=== PATIENT | female | born 1950 | race Hispanic/Latino ===

== ENCOUNTER 2024-06-08 09:22 | Observation (INO) ==
--- NOTE | 2024-06-08 09:54 | Emergency Department Note ---
HPI - General Adult General Chief complaint: Weakness Stated complaint: BODY ACHES, NAUSEA Time Seen by Provider: 06/08/24 09:28 Source: patient and family Mode of arrival: walk-in Limitations: language barrier Limitations comment: Limited [place] History of Present Illness HPI narrative: This is a 74 year old female patient that presents to the ER with c/o cough, nausea, headache, runny nose and body aches for 2 days. Patient denies any chest pain, SOB, back pain, abdominal pain, fever, chills or N/V/D. patient denies any numbness, tingling, or weakness Onset (ago): day(s) (2) Relieving factors: Reports none Exacerbating factors: Reports none Associated symptoms: Reports cough and headaches Treatments prior to arrival: Reports none Related Data Home Medications Medication Instructions Recorded Confirmed famotidine 20 mg tablet 20 mg PO DAILY 10/11/23 02/12/24 gabapentin 400 mg capsule 400 mg PO DIRECTED 10/11/23 02/12/24 glipizide 10 mg tablet 10 mg PO BID 10/11/23 02/12/24 lisinopril 10 1 tab PO DAILY 10/11/23 02/12/24 mg-hydrochlorothiazide 12.5 mg tablet meloxicam 15 mg tablet 15 mg PO DAILY 10/11/23 02/12/24 pravastatin 40 mg tablet 40 mg PO DAILY 10/11/23 02/12/24 aspirin 81 mg tablet,delayed 81 mg PO DAILY 02/12/24 02/12/24 release Previous Rx's Medication Instructions Recorded cyclobenzaprine 10 mg tablet 10 mg PO TID PRN muscle spasm #15 02/12/24 tabs dexamethasone 1.5 mg (21 tabs) See Rx Instructions PO .COMPLEX 02/12/24 tablets in a dose pack Inflammation #21 ea ketorolac 10 mg tablet 10 mg PO Q6H PRN pain #20 tabs 02/12/24 Allergies Allergy/AdvReac Type Severity Reaction Status Date / Time No Known Drug Allergies Allergy Verified 06/08/24 09:43 Review of Systems Status of ROS 10 or more systems reviewed and unremark able except as noted in history and below Constitutional Denies: fever, chills, change in weight, fatigue, malaise or night sweats Eyes Denies: change in vision, blurry vision, blind spots, light sensitivity or eye discomfort Ears, nose, mouth, and throat Reports: nasal discharge and nasal congestion; Denies: throat pain, neck pain, throat swelling, difficulty swallowing, ho arseness or mouth pain Cardiovascular Denies: chest pain, palpitations, edema, swelling of feet/ankles or lightheadedness Respiratory Reports: cough; Denies: shortness of breath, wheezing, stridor, pain on inspiration, change in phlegm color or coughing up blood Gastrointestinal Denies: abdominal pain, nausea, vomiting, coffee grounds in vomit, heartburn, diarrhea or constipation Genitourinary Denies: painful urination, urinary frequency, urinary urgency, urinary incontinence or blood in urine Musculoskeletal Denies: back pain, neck pain, extremity pain, extremity swelling, joint pain or limited range of motion Integumentary/Breast Denies: rash, itching, redness, skin pain, skin tenderness, skin swelling, sores or new lesion Neurological Denies: headache, numbness in extremities, weakness in extremities, lack of coordination, dizziness or vertigo Psychiatric Denies: anxiety, mood swings, panic attacks, change in sleep pattern, hopelessness or loss of interest Endocrine Denies: excessive urination, excessive thirst, fatigue, cold intolerance, excessive sweating or flushing Hematologic/Lymphatic Denies: easy bruising, easy bleeding or enlarged lymph nodes Allergic/Immunologic Denies: hives, throat swelling, tongue swelling or facial swelling [facility] Medical History (Updated 04/29/24 @ 18:26 by Rula Mcgovern RN) Kidney disease Diabetes Hypertension Surgical History History of hysterectomy Social History (Updated 10/11/23 @ 13:29 by Cristela Eugene APRN) Smoking status: never smoker Within the past year, how often did you have a drink containing alcohol: never Score interpretation: A score less than 3 is consistent with normal alcohol consumption. Non-prescribed substance use: denies use What is your current living situation: I presently have a place to live Feel stressed/tense/nervous/anxious/difficulty sleeping: not at all Life stressors: other Life stressor details: 1 Due to disability, difficulty making decisions: No Exam Constitutional: normal general appearance and no apparent distress Vital Signs - 24 hr 06/08/24 09:38 Temperature 98.2 F Pulse Rate 79 Respiratory Rate 18 Blood Pressure 103/57 Pulse Oximetry 98 Oxygen Delivery Me thod Room Air HENMT: normocephalic, head/scalp atraumatic, hearing grossly normal bilaterally, external ears normal, nasal mucous membranes normal, external nose normal, oral mucous membranes normal and oropharynx normal Eyes: PERRL, EOMs intact bilaterally, conjunctivae normal and no scleral icterus Neck/C-Spine: visual inspection normal and trachea midline Lymph: no lymphadenopathy noted Chest: inspection of chest normal Respiratory: breath sounds equal bilaterally, normal respiratory effort, clear to auscultation bilaterally, no wheezes, no rales, no retractions, no use of accessory muscles and chest percussion normal Cardiovascular: normal heart rate noted, regular rhythm noted, no gallop, no rub, no murmur, no JVD, no clicks, peripheral pulses 2+ throughout and no additional abnormal heart sounds Gastrointestinal: abdomen normal to inspection, abdomen soft to palpation, nontender to palpation, nontender to percussion, nondistended, normoactive bowel sounds, no hepatosplenomegaly, no masses, no pulsatile mass, no ascites and no hernia Genitourinary: no CVA tenderness Back/Pelvis: spine normal to inspection Extremities: normal to inspection, normal to palpation, no tenderness, full ROM, no joint enlargement and no deformity 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, no movement abnormality noted, no focal motor deficit noted, no sensory deficits noted, gait normal, speech normal, coordination normal, no pronator drift noted, no fasciculations noted and GCS normal Psychiatry: mental status grossly normal, oriented x3, thought process normal, cooperative and affect normal Skin: skin color normal Course Reevaluation(s) Reevaluation #1: 1130: VSS, no s/s of acute distress noted, due to worsening of kidney function will admit patient to the medical floor for further evaluation and treatment Vital Signs Vital signs: Vital Signs Temperature 98.2 F 06/08/24 09:38 Pulse Rate 79 06/08/24 09:38 Respiratory Rate 18 06/08/24 09:38 Blood Pressure 103/57 06/08/24 09:38 Pulse Oximetry 98 06/08/24 09:38 Oxygen Delivery Method Room Air 06/08/24 09:38 Temperature 98.2 F 06/08/24 09:38 Pulse Rate 79 06/08/24 09:38 Respiratory Rate 18 06/08/24 09:38 Blood Pressure 103/57 06/08/24 09:38 Pulse Oximetry 98 06/08/24 09:38 Oxygen Delivery Method Room Air 06/08/24 09:38 Medical Decision Making Differential Diagnosis Differential Diagnosis: viral illness Medical Records Medical records reviewed: Yes I reviewed the patient's medical records Lab Data Lab results reviewed: Yes I reviewed the patient's lab results Labs: Lab Results 06/08/24 Range/Units 10:00 WBC 9.5 H (4.3-9.3) K/uL RBC 4.0 (4.00-5.50) M/uL Hgb 12.8 (12.5-15.8) gm/dL Hct 37.2 (35.9-46.7) % MCV 92.5 (81.0-93.7) fl MCH 31.8 (27.6-32.2) pg MCHC 34.4 (33.1-35.3) g/dl RDW 13.2 (11.4-14.2) % Plt Count 280 (152-353) K/uL MPV 9.1 (6.9-10.8) fl Gran % 70.9 (47.8-71.3) % Lymph % (Auto) 19.7 L (20.0-43.0) % [place] % (Auto) 6.7 (3.6-9.8) % Eos % (Auto) 2.2 (0.4-2.8) % Baso % (Auto) 0.5 (0.1-0.85) Lymph # (Auto) 1.9 (1.1-3.1) [place] # (Auto) 0.6 L (1.1-3.1) Eos # (Auto) 0.2 (0.0-0.2) Baso # (Auto) 0.1 (0.0-0.1) Absolute Gran (auto) 6.7 H (2.3-6.0) Sodium 133 L (136-145) mmol/L Potassium 4.1 (3.6-5.2) mmol/L Chloride 97.0 L (98-107) mmol/L Carbon Dioxide 23 (21-32) mmol/L Anion Gap 13.0 (4-14) mEq/L BUN 38 H (7-18) mg/dL Creatinine 2.7 H (0.6-1.3) mg/dL Estimated GFR 17.8 (>59.9) Glucose 115 H (70-110) mg/dL Calcium 9.1 (8.5-10.1) mg/dL Total Bilirubin 0.51 (0.0-1.0) mg/dL AST 21 (15-37) U/L ALT 15 L (30-65) U/L Alkaline Phosphatase 101 (50-136) U/L Total Protein 7.6 (6.4-8.2) g/dL Albumin 3.9 (3.4-5.0) g/dL Influenza Type A Ag Negative (Negative) Influenza Type B Ag Negative (Negative) Respiratory Virus Ag Negative (Negative) Streptococcus Screen Negative (Negative) Imaging Data CT scan - head: Attestation: I have reviewed the pertinent imaging results. Discharge Plan Discharge Patient Disposition: Admitted As Observation Condition: Stable Chief Complaint: Weakness Clinical Impression: Dehydration, Acute on chronic renal failure Time of Disposition: 11:57
[2024-06-08] MEDS: ONDANSETRON HCL/PF 4 MG/2 ML VIAL INJ STA (10:02)
[2024-06-08] MEDS: 0.9 % SODIUM CHLORIDE 1000 ML 1,000 ML IV STA ×2 (10:02→11:17)
[2024-06-08 10:08] LABS: Basophils #(Absolute) Auto 0.1 (0.0-0.1); Basophils%(Percent) Auto 0.5 (0.1-0.85); Eosinophils#(Absolute)Auto 0.2 (0.0-0.2); Eosinophils%(Percent) Auto 2.2 % (0.4-2.8); Granulocytes % - Auto 70.9 % (47.8-71.3); Granulocytes#(Absolute)- Auto 6.7 (2.3-6.0); Hematocrit 37.2 % (35.9-46.7); Mean Corpuscular Volume 92.5 fl (81.0-93.7); Monocytes #(Absolute)- Auto 0.6 (1.1-3.1); Monocytes %(Percent)- Auto 6.7 % (3.6-9.8); Platelet Count 280 K/uL (152-353); White Blood Count 9.5 K/uL (4.3-9.3)
[2024-06-08 10:15] LABS: Potassium 4.1 mmol/L (3.6-5.2)
[2024-06-08] MEDS ORDERED: ACETAMINOPHEN 500 MG TABLET ONE (11:15)
[2024-06-08] MEDS: ACETAMINOPHEN 500 MG TABLET PO ONE (11:17)
[2024-06-08 12:44] LABS: Urine Appearance CLEAR (CLEAR); Urine Color YELLOW (STRAW/YELL.)
[2024-06-08 12:45] LABS: Urine Blood NEGATIVE (NEG - TRACE); Urine Urobilinogen Normal (NORMAL)
[2024-06-08 13:51] LABS: Amphetamine Screen Urine NEG. (NEGATIVE); Cannabinoid Screen Urine NEG. (NEGATIVE); Cocaine Screen Urine NEG. (NEGATIVE); Methadone Screen Urine NEG. (NEGATIVE); Opiate Screen Urine NEG. (NEGATIVE)
[2024-06-08] MEDS ORDERED: bisacodyL 10 MG SUPP.RECT PR PRN (14:00)
[2024-06-08] MEDS: 0.9 % SODIUM CHLORIDE 1000 ML 1,000 ML IV SCH (14:37)
[2024-06-08] MEDS: ACETAMINOPHEN 500 MG TABLET PO PRN (16:26)
[2024-06-08] MEDS: MAGNESIUM, ALUMINUM HYDROXIDE 30 ML ORAL.SUSP PO PRN (21:08)
[2024-06-09 03:56] LABS: Basophils%(Percent) Auto 0.6 (0.1-0.85); Eosinophils#(Absolute)Auto 0.3 (0.0-0.2); Eosinophils%(Percent) Auto 3.8 % (0.4-2.8); Granulocytes % - Auto 67.2 % (47.8-71.3); Granulocytes#(Absolute)- Auto 5.1 (2.3-6.0); Hematocrit 34.3 % (35.9-46.7); Mean Corpuscular Volume 92.7 fl (81.0-93.7); Monocytes #(Absolute)- Auto 0.6 (1.1-3.1); Monocytes %(Percent)- Auto 8.1 % (3.6-9.8); Platelet Count 238 K/uL (152-353); White Blood Count 7.6 K/uL (4.3-9.3)
[2024-06-09 04:19] LABS: Potassium 3.8 mmol/L (3.6-5.2)
--- NOTE | 2024-06-09 10:27 | Internal Medicine H&P ---
Internal Medicine - H&P: HPI History of Present Illness Chief complaint: ACUTE ON CHRONIC RF, DEHYDRATION Narrative: Pt admitted from home via ER due to 2 days of worsening cough, malaise, chest congestion, and decreased intake. Found to have acute on chronic renal failure with otherwise benign labs and vitals. Did not rest well overnight due to mid- scapular back pain and cough. Denies fever, chills, N/V/D, rash, dyspnea, or hemoptysis. Review of Systems Status of ROS 10 or more systems reviewed and unremark able except as noted in history and below Constitutional Denies: fever, chills, change in weight, fatigue, malaise or night sweats Eyes Denies: change in vision, blurry vision, blind spots, light sensitivity or eye discomfort Ears, nose, mouth, and throat Reports: nasal discharge and nasal congestion; Denies: throat pain, neck pain, throat swelling, difficulty swallowing, hoarseness, mouth pain or vertigo Cardiovascular Denies: chest pain, palpitations, edema, swelling of feet/ankles, lightheadedness or shortness of breath with exertion Respiratory Reports: cough; Denies: shortness of breath, wheezing, stridor, pain on inspiration, change in phlegm color or coughing up blood Gastrointestinal Denies: abdominal pain, nausea, vomiting, coffee grounds in vomit, heartburn, diarrhea, constipation or difficulty swallowing Genitourinary Denies: painful urination, urinary frequency, urinary urgency, urinary incontinence or blood in urine Musculoskeletal Denies: back pain, neck pain, extremity pain, extremity swelling, joint pain or limited range of motion Integumentary/Breast Denies: rash, itching, redness, skin pain, skin tenderness, skin swelling, sores or new lesion Neurological Denies: headache, numbness in extremities, weakness in extremities, lack of coordination, dizziness or vertigo Psychiatric Denies: anxiety, mood swings, panic attacks, change in sleep pattern, hopelessness or loss of interest Endocrine Denies: excessive urination, excessive thirst, fatigue, cold intolerance, excessive sweating or flushing Hematologic/Lymphatic Denies: easy bruising, easy bleeding or enlarged lymph nodes Allergic/Immunologic Denies: hives, throat swelling, tongue swelling, facial swelling or wheezing [facility] Medical History (Updated 06/09/24 @ 11:53 by Rajiv Retana MD) Kidney disease Diabetes Hypertension Surgical History History of hysterectomy Social History (Updated 10/11/23 @ 13:29 by Cristela Eugene APRN) Smoking status: never smoker Within the past year, how often did you have a drink containing alcohol: never Score interpretation: A score less than 3 is consistent with normal alcohol consumption. Non-prescribed substance use: denies use What is your current living situation: I presently have a place to live Problems where you live: no known problems Highest level of school completed/degree received: decline to answer Feel stressed/tense/nervous/anxious/difficulty sleeping: not at all Life stressors: other Life stressor details: 1 Due to disability, difficulty making decisions: No Meds Home Medications and Allergies Home Medications Medication Instructions Recorded Confirmed Type glipizide 10 mg tablet 10 mg PO BID 10/11/23 06/09/24 History lisinopril 10 1 tab PO DAILY 10/11/23 06/09/24 History mg-hydrochlorothiazide 12.5 mg tablet aspirin 81 mg tablet,delayed 81 mg PO DAILY 02/12/24 06/09/24 History release insulin degludec 200 unit/mL (3 See Rx Instructions subcut .COMPLEX 06/09/24 06/09/24 History mL) subcutaneous pen (Tresiba FlexTouch U-200 insulin) Allergies Allergy/AdvReac Type Severity Reaction Status Date / Time No Known Drug Allergies Allergy Verified 06/08/24 09:43 Exam Constitutional: normal general appearance, no apparent distress, average body habitus, limitations noted (language barrier) and alert Vital Signs - 24 hr 06/08/24 10:30 06/08/24 11:00 06/08/24 11:31 Temperature Pulse Rate 78 77 78 Pulse Rate [Left R adial] Respiratory Rate 18 18 18 Blood Pressure 110/78 116/80 117/84 Blood Pressure [Ri ght Arm] Pulse Oximetry 98 98 98 Oxygen Delivery Me thod Room Air Room Air Room Air 06/08/24 12:00 06/08/24 12:20 06/08/24 12:27 Temperature 98.2 F Pulse Rate 69 69 Pulse Rate [Left R adial] 67 Respiratory Rate 18 19 18 Blood Pressure 120/80 120/80 Blood Pressure [Ri ght Arm] Pulse Oximetry 98 98 98 Oxygen Delivery Me thod Room Air Room Air 06/08/24 13:03 06/08/24 13:10 06/08/24 17:25 Temperature 98.3 F Pulse Rate 67 70 Pulse Rate [Left R adial] 69 Respiratory Rate 19 Blood Pressure 118/57 112/53 Blood Pressure [Ri ght Arm] 123/65 Pulse Oximetry 99 Oxygen Delivery Me thod Room Air 06/08/24 17:25 06/08/24 20:00 06/08/24 23:53 Temperature 97.5 F L 98.3 F Pulse Rate 74 Pulse Rate [Left R adial] 73 72 Respiratory Rate 19 16 Blood Pressure 122/49 Blood Pressure [Ri ght Arm] 149/96 117/60 Pulse Oximetry 99 97 Oxygen Delivery Ca thod Room Air Room Air 06/09/24 04:00 06/09/24 08:00 Temperature 97.7 F 99.9 F H Pulse Rate Pulse Rate [Left R adial] 81 72 Respiratory Rate 18 19 Blood Pressure Blood Pressure [Ri ght Arm] 113/46 120/55 Pulse Oximetry 99 99 [facility] HENMT: normocephalic, head/scalp atraumatic, hearing grossly normal bilaterally and external ears normal Eyes: PERRL, EOMs intact bilaterally and conjunctivae normal Neck/C-Spine: visual inspection normal and trachea midline Chest: palpation of chest normal Respiratory: breath sounds equal bilaterally, normal respiratory effort, wheezing noted (expiratory wheezes) and (scattered wheezes) and no rales Cardiovascular: normal heart rate noted, regular rhythm noted and no murmur Gastrointestinal: abdomen soft to palpation, nontender to palpation, nondistended and normoactive bowel sounds Back/Pelvis: no thoracic spine tenderness, no lumbar spine tenderness, thoracic spine ROM normal and lumbar spine ROM normal Extremities: normal to inspection, normal to palpation, no tenderness and full ROM Neurology: no focal motor deficit noted, speech normal and no fasciculations noted Psychiatry: mental status grossly normal, oriented x3, thought process normal, cooperative, affect normal and psychomotor activity normal Internal Medicine - H&P: Reslt Labs Labs: CBC WBC 7.6 K/uL (4.3-9.3) 06/09/24 03:40 RBC 3.7 M/uL (4.00-5.50) L 06/09/24 03:40 Hgb 11.7 gm/dL (12.5-15.8) L 06/09/24 03:40 Hct 34.3 % (35.9-46.7) L 06/09/24 03:40 MCV 92.7 fl (81.0-93.7) 06/09/24 03:40 MCH 31.5 pg (27.6-32.2) 06/09/24 03:40 MCHC 34.0 g/dl (33.1-35.3) 06/09/24 03:40 RDW 13.6 % (11.4-14.2) 06/09/24 03:40 Plt Count 238 K/uL (152-353) 06/09/24 03:40 MPV 9.3 fl (6.9-10.8) 06/09/24 03:40 Gran % 67.2 % (47.8-71.3) 06/09/24 03:40 Lymph % (Auto) 20.3 % (20.0-43.0) 06/09/24 03:40 [place] % (Auto) 8.1 % (3.6-9.8) 06/09/24 03:40 Eos % (Auto) 3.8 % (0.4-2.8) H 06/09/24 03:40 Baso % (Auto) 0.6 (0.1-0.85) 06/09/24 03:40 Lymph # (Auto) 1.5 (1.1-3.1) 06/09/24 03:40 [place] # (Auto) 0.6 (1.1-3.1) L 06/09/24 03:40 Eos # (Auto) 0.3 (0.0-0.2) H 06/09/24 03:40 Baso # (Auto) 0.0 (0.0-0.1) 06/09/24 03:40 Absolute Gran (auto) 5.1 (2.3-6.0) 06/09/24 03:40 BMP Sodium 137 mmol/L (136-145) 06/09/24 03:40 Potassium 3.8 mmol/L (3.6-5.2) 06/09/24 03:40 Chloride 106.0 mmol/L (98-107) 06/09/24 03:40 Carbon Dioxide 23 mmol/L (21-32) 06/09/24 03:40 Anion Gap 8.0 mEq/L (4-14) 06/09/24 03:40 BUN 26 mg/dL (7-18) H 06/09/24 03:40 Creatinine 1.8 mg/dL (0.6-1.3) H 06/09/24 03:40 Estimated GFR 29.0 (>59.9) 06/09/24 03:40 Glucose 61 mg/dL (70-110) L 06/09/24 03:40 Calcium 8.1 mg/dL (8.5-10.1) L 06/09/24 03:40 Phosphorus 3.5 mg/dL (2.5-4.9) 06/09/24 03:40 Magnesium 2.1 mg/dL (1.8-2.4) 06/09/24 03:40 Total Bilirubin 0.30 mg/dL (0.0-1.0) 06/09/24 03:40 AST 15 U/L (15-37) 06/09/24 03:40 ALT 10 U/L (30-65) L 06/09/24 03:40 Alkaline Phosphatase 91 U/L (50-136) 06/09/24 03:40 Total Protein 6.3 g/dL (6.4-8.2) L 06/09/24 03:40 Albumin 3.1 g/dL (3.4-5.0) L 06/09/24 03:40 Liver Function Total Bilirubin 0.30 mg/dL (0.0-1.0) 06/09/24 03:40 AST 15 U/L (15-37) 06/09/24 03:40 ALT 10 U/L (30-65) L 06/09/24 03:40 Alkaline Phosphatase 91 U/L (50-136) 06/09/24 03:40 Total Protein 6.3 g/dL (6.4-8.2) L 06/09/24 03:40 Albumin 3.1 g/dL (3.4-5.0) L 06/09/24 03:40 Urine Urine Color Yellow (STRAW/YELL.) 06/08/24 11:15 Urine Appearance Clear (CLEAR) 06/08/24 11:15 Ur Specific [place] 1.010 (1.001-1.035) 06/08/24 11:15 Urine Protein Negative (NEGATIVE) 06/08/24 11:15 Urine Glucose (UA) 4+ (NORMAL) 06/08/24 11:15 Urine Ketones Negative (NEGATIVE) 06/08/24 11:15 Urine Occult Blood Negative (NEG - TRACE) 06/08/24 11:15 Urine Nitrite Negative (NEGATIVE) 06/08/24 11:15 Urine Bilirubin Negative (NEGATIVE) 06/08/24 11:15 Urine Urobilinogen Normal (NORMAL) 06/08/24 11:15 Ur Leukocyte Esterase Negative (NEGATIVE) 06/08/24 11:15 Assessment and Plan Assessment and Plan (1) Acute bronchitis: Assessment and Plan: Likely viral. Steroids, nebs, inhalers, rest, regular diet Qualifiers: Bronchitis organism: unspecified organism Qualified Code(s): J20.9 - Acute bronchitis, unspecified Code(s): J20.9 - Acute bronchitis, unspecified (2) Acute on chronic kidney failure: Assessment and Plan: gentle hydration, at baseline today. Qualifiers: Acute renal failure type: with acute tubular necrosis Chronic kidney disease stage: stage 4 (GFR 15-29) Qualified Code(s): N17.0 - Acute kidney failure with tubular necrosis; N18.4 - Chronic kidney disease, stage 4 (severe) Code(s): N17.9 - Acute kidney failure, unspecified; N18.9 - Chronic kidney disease, unspecified Plan likely home tomorrow.
[2024-06-09] MEDS: BENZONATATE 100 MG CAPSULE PO PRN (11:20)
[2024-06-09] MEDS: METHYLPREDNISOLONE SOD SUCC/PF 125 MG/2 ML VIAL IVP ONE (11:20)
[2024-06-09] MEDS: IPRATROPIUM INH SCH (12:46)
[2024-06-09] MEDS: ALBUTEROL SULFATE INH SCH (12:46)
[2024-06-09] MEDS: GUAIFENESIN/DEXTROMETHORPHAN 20/200MG/10 ML SOLUTION PO SCH (12:46)
[2024-06-09] MEDS: SPACER INH SCH (12:46)
[2024-06-10] MEDS: TRAMADOL HCL 50 MG TABLET PO ONE (05:46)
--- NOTE | 2024-06-10 07:48 | Discharge Summary ---
DS: Providers Provider Date of admission: 06/08/24 11:43 Primary care physician: Yulisa Villa DS: Diagnosis Discharge Diagnosis (1) Acute bronchitis: Qualifiers: Bronchitis organism: unspecified organism Qualified Code(s): J20.9 - Acute bronchitis, unspecified (2) Acute on chronic kidney failure: Qualifiers: Acute renal failure type: with acute tubular necrosis Chronic kidney d isease stage: stage 4 (GFR 15-29) Qualified Code(s): N17.0 - Acute kidney failure with tubular necrosis; N18.4 - Chronic kidney disease, stage 4 (severe) DS: Summary Time Spent with Patient Time attestation: Total time spent providing and/or coordinating discharge services: Exam Constitutional: Vital Signs - 24 hr 06/09/24 08:00 06/09/24 12:00 06/09/24 16:00 Temperature 99.9 F H 98.6 F 98.6 F Pulse Rate [Left R adial] 72 69 82 Respiratory Rate 19 19 20 Blood Pressure [Ri ght Arm] 120/55 126/63 131/54 Pulse Oximetry 99 99 99 Oxygen Delivery Me thod Room Air Room Air Room Air 06/09/24 20:00 06/09/24 23:56 06/10/24 04:00 Temperature 98.5 F 97.9 F 97.7 F Pulse Rate [Left R adial] 83 81 81 Respiratory Rate 19 17 18 Blood Pressure [Ri ght Arm] 108/46 147/57 108/64 Pulse Oximetry 98 97 98 Oxygen Delivery Me thod Room Air Room Air Room Air Discharge Plan Discharge Condition: Stable Discharge Medications: No Action glipizide 10 mg tablet 10 mg PO BID Rx Instructions: LAST FILLED IN MARCH lisinopril-hydrochlorothiazide 10-12.5 mg tablet 1 tab PO DAILY Patient Comments: TAKE 1 TABLET BY MOUTH ONCE DAILY Rx Instructions: LAST FILLED IN LATE MARCH aspirin 81 mg tablet,delayed release (DR/EC) 81 mg PO DAILY Patient Comments: TAKE 1 BY MOUTH ONCE DAILY Rx Instructions: LAST FILLED IN BUT CAN BE BOUGHT OVER THE COUNTER insulin degludec [Tresiba FlexTouch U-200] 200 unit/mL (3 mL) insulin pen See Rx Instructions SUBCUT .COMPLEX Rx Instructions: UNKNOWN DOSE subcutaneously; THERE ARE NO DIRECTIONS AND IT WAS LAST FILLED IN MARCH Interventions: MED/SURG & ICU Observation Charge Sheet Last Done: 06/10/24 06:05 Print Language: Hungarian Follow-Ups: Yulisa Villa [Primary Care Provider] -
[2024-06-10 08:53] LABS: Basophils%(Percent) Auto 0.2 (0.1-0.85); Eosinophils%(Percent) Auto 0.1 % (0.4-2.8); Granulocytes % - Auto 75.8 % (47.8-71.3); Granulocytes#(Absolute)- Auto 6.3 (2.3-6.0); Hematocrit 34.3 % (35.9-46.7); Monocytes #(Absolute)- Auto 0.8 (1.1-3.1); Platelet Count 231 K/uL (152-353); White Blood Count 8.3 K/uL (4.3-9.3)
[2024-06-10 08:59] LABS: Potassium 4.3 mmol/L (3.6-5.2)
--- NOTE | 2024-06-10 14:18 | Internal Medicine Prog Note ---
Progress Note: A&P Assessment and Plan (1) Acute bronchitis: Assessment and Plan: Likely viral. Continue steroids, nebs, inhalers, rest, regular diet Qualifiers: Bronchitis organism: unspecified organism Qualified Code(s): J20.9 - Acute bronchitis, unspecified (2) Acute on chronic kidney failure: Assessment and Plan: resolved Qualifiers: Acute renal failure type: with acute tubular necrosis Chronic kidney disease stage: stage 4 (GFR 15-29) Qualified Code(s): N17.0 - Acute kidney failure with tubular necrosis; N18.4 - Chronic kidney disease, stage 4 (severe) Plan likely home in 24-48hrs Fall Risk Details Santos Fall Scale Risk Level: High Fall Risk Current Medications: Current Medications Acetaminophen (Acetaminophen 500 Mg Tablet) 500 mg PO Q6H PRN PRN Reason: MILD PAIN SCALE 1-4 Last Admin: 06/10/24 01:52 Dose: 500 mg Albuterol Sulfate (Ipratropium/Albuterol Sulfate Inhaler 1 Puff) 2 puff INH QID [facility] Last Admin: 06/10/24 13:19 Dose: 2 puff Benzonatate (Benzonatate 100 Mg Capsule) 200 mg PO Q8H PRN PRN Reason: cough Last Admin: 06/09/24 11:20 Dose: 200 mg Bisacodyl (Bisacodyl 10 Mg Supp.Rect) 10 mg [place] DAILY PRN PRN Reason: Constipation Guaifenesin (Guaifenesin/Dextromethorphan 20/200mg/10 Ml Solution) 10 ml PO QID [facility] Last Admin: 06/10/24 13:19 Dose: 10 ml Sodium Chloride (Sodium Chloride) 1,000 mls @ 125 mls/hr IV CONT JACKIE Last Admin: 06/10/24 04:21 Dose: 125 mls/hr Insulin Human Regular (Insulin Regular, Human 100 Unit/Ml) 0 unit SUBQ ACHS PRN; Protocol PRN Reason: hyperglycemia Last Admin: 06/10/24 00:04 Dose: 10 unit Magnesium Hydroxide (Magnesium, Aluminum Hydroxide 30 Ml Oral.Susp) 30 ml PO DAILY PRN PRN Reason: DYSPEPSIA Last Admin: 06/08/24 21:08 Dose: 30 ml Non-Formulary Medication (Spacer) 1 unit INH QID [facility] Last Admin: 06/10/24 08:25 Dose: 1 unit Time Spent With Patient Time: Total time spent is greater than 50% in coordination of care (as documented) at patient's floor/unit and/or counseling patient: Time with patient: less than 15 minutes Internal Medicine - PN: Subj Subjective Interval history: No overnight events. Still coughing and with wheezing. Resting in bedside chair this AM. SCr normalized today. Exam Constitutional: normal general appearance, no apparent distress, average body habitus and level of alertness abnormal (asleep) Vital Signs - 24 hr 06/09/24 16:00 06/09/24 20:00 06/09/24 23:56 Temperature 98.6 F 98.5 F 97.9 F Pulse Rate [Left R adial] 82 83 81 Respiratory Rate 20 19 17 Blood Pressure [Ri ght Arm] 131/54 108/46 147/57 Pulse Oximetry 99 98 97 Oxygen Delivery Me thod Room Air Room Air Room Air 06/10/24 04:00 06/10/24 08:00 06/10/24 12:00 Temperature 97.7 F 97.9 F 98.4 F Pulse Rate [Left R adial] 81 71 72 Respiratory Rate 18 18 19 Blood Pressure [Ri ght Arm] 108/64 138/66 127/53 Pulse Oximetry 98 100 100 Oxygen Delivery Me thod Room Air Room Air Room Air HENMT: normocephalic and head/scalp atraumatic Neck/C-Spine: trachea midline Respiratory: breath sounds equal bilaterally, normal respiratory effort and wheezing noted (scattered wheezes) Cardiovascular: normal heart rate noted, regular rhythm noted and no murmur Gastrointestinal: abdomen soft to palpation, nontender to palpation, nondistended and normoactive bowel sounds Internal Medicine - PN: Obj Da Labs Labs: Laboratory Results - last 24 hr 06/10/24 08:34 WBC 8.3 RBC 3.7 L Hgb 11.7 L Hct 34.3 L MCV 93.0 MCH 31.8 MCHC 34.2 RDW 13.3 Plt Count 231 MPV 9.0 Gran % 75.8 H Lymph % (Auto) 14.9 L [place] % (Auto) 9.0 Eos % (Auto) 0.1 L Baso % (Auto) 0.2 Lymph # (Auto) 1.2 [place] # (Auto) 0.8 L Eos # (Auto) 0.0 Baso # (Auto) 0.0 Absolute Gran (auto) 6.3 H Sodium 134 L Potassium 4.3 Chloride 103.0 Carbon Dioxide 22 Anion Gap 9.0 BUN 24 H Creatinine 1.3 Estimated GFR 42.9 Glucose 196 H Calcium 8.6 Magnesium 2.0 Review of Systems Status of ROS: 10 or more systems reviewed and unremarkable except as noted in history and below Constitutional: Denies: fever, chills, change in weight, fatigue, malaise or night sweats Eyes: Denies: change in vision, blurry vision, blind spots, light sensitivity or eye discomfort Ears, nose, mouth, and throat: Reports: nasal discharge and nasal congestion; Denies: throat pain, neck pain, throat swelling, difficulty swallowing, hoarseness, mouth pain or vertigo Cardiovascular: Denies: chest pain, palpitations, edema, swelling of feet/ankles, lightheadedness or shortness of breath with exertion Respiratory: Reports: cough; Denies: shortness of breath, wheezing, stridor, pain on inspiration, change in phlegm color or coughing up blood Gastrointestinal: Denies: abdominal pain, nausea, vomiting, coffee grounds in vomit, heartburn, diarrhea, constipation or difficulty swallowing Genitourinary: Denies: painful urination, urinary frequency, urinary urgency, urinary incontinence or blood in urine Musculoskeletal: Denies: back pain, neck pain, extremity pain, extremity swelling, joint pain or limited range of motion Integumentary/Breast: Denies: rash, itching, redness, skin pain, skin tenderness, skin swelling, sores or new lesion Neurological: Denies: headache, numbness in extremities, weakness in extremities, lack of coordination, dizziness or vertigo Psychiatric: Denies: anxiety, mood swings, panic attacks, change in sleep pattern, hopelessness or loss of interest Endocrine: Denies: excessive urination, excessive thirst, fatigue, cold intolerance, excessive sweating or flushing Hematologic/Lymphatic: Denies: easy bruising, easy bleeding or enlarged lymph nodes Allergic/Immunologic: Denies: hives, throat swelling, tongue swelling, facial swelling or wheezing
[2024-06-10] MEDS: KETOROLAC 30 MG/ML INJ VIAL IVP ONE (15:35)
[2024-06-10] MEDS: DOXYCYCLINE HYCLATE 100 MG TABLET PO SCH (20:24)
[2024-06-11 05:22] LABS: Basophils #(Absolute) Auto 0.1 (0.0-0.1); Basophils%(Percent) Auto 0.7 (0.1-0.85); Eosinophils#(Absolute)Auto 0.2 (0.0-0.2); Eosinophils%(Percent) Auto 3.4 % (0.4-2.8); Granulocytes % - Auto 72.3 % (47.8-71.3); Granulocytes#(Absolute)- Auto 5.2 (2.3-6.0); Hematocrit 34.6 % (35.9-46.7); Mean Corpuscular Volume 93.4 fl (81.0-93.7); Monocytes #(Absolute)- Auto 0.5 (1.1-3.1); Monocytes %(Percent)- Auto 7.4 % (3.6-9.8); Platelet Count 213 K/uL (152-353); White Blood Count 7.2 K/uL (4.3-9.3)
[2024-06-11 05:30] LABS: Potassium 4.1 mmol/L (3.6-5.2)
[2024-06-11] MEDS: ASPIRIN 81 MG TABLET.DR PO SCH (09:24)
[2024-06-11] MEDS: MAGNESIUM SULFATE 1 GM/2 ML 3 GM in 0.9 % SODIUM CHLORIDE 100ML 100 ML IV ONE (10:05)
[2024-06-11] MEDS: FLUTICASONE 50 MCG NASAL 1 SPRAY.SUSP NAS SCH (13:47)
[2024-06-11] MEDS: AZITHROMYCIN 500 MG 500 MG in 0.9 % SODIUM CHLORIDE 250 ML IV SCH (13:48)
[2024-06-11] MEDS: HYDROCODONE/CHLORPHEN P-STIREX 5 ML SUS.ER.12H PO SCH (13:48)
[2024-06-11] MEDS: METHYLPREDNISOLONE SOD SUCC/PF 125 MG/2 ML VIAL IVP SCH (13:49)
--- NOTE | 2024-06-11 16:43 | Progress Note ---
Progress Note: Subjective Subjective Interval history: Day three of hospital stay, patient is complaining of a headache this a.m. Additional symptoms include nasal congestion, rhonchi posterior, post nasal drip, and painful chest when coughing. abdominal pain. CT of Sinuses w/wo Contrast has been requested. Patient states they are not feeling well. anguage barrier despite interpreters having issues understanding patients pain and symptoms of fatigue and cannot breathe Exam Exam: Patient in hernandez's position upon entering room for exam. Language line utilized due to language barrier. Constitutional: normal general appearance, distress noted (mild), abnormal body habitus (obese), limitations noted (language barrier) and alert Vital Signs - 24 hr 06/10/24 19:37 06/11/24 00:00 06/11/24 03:36 Temperature 98.2 F 98.5 F 97.9 F Pulse Rate [Left R adial] 81 80 77 Respiratory Rate 17 18 20 Blood Pressure [Ri ght Arm] 114/46 173/62 132/57 Pulse Oximetry 97 97 97 Oxygen Delivery Me thod Room Air Room Air Room Air 06/11/24 07:49 06/11/24 12:00 Temperature 99.2 F 98.7 F Pulse Rate [Left R adial] 78 78 Respiratory Rate 19 19 Blood Pressure [Ri ght Arm] 142/57 144/72 Pulse Oximetry 97 98 Oxygen Delivery Oh thod Room Air Room Air HENMT: normocephalic, head/scalp atraumatic, hearing grossly normal bilaterally, external ears normal, TMs abnormal (erythematous), nasal mucous membranes abnormal (pale), external nose normal, oral mucous membranes abnormal and oropharynx normal nasal passages closed off Eyes: PERRL, EOMs intact bilaterally, conjunctivae normal and no scleral icterus Neck/C-Spine: visual inspection normal and trachea midline Lymph: no lymphadenopathy noted Chest: inspection of chest normal and palpation of chest normal Respiratory: breath sounds equal bilaterally, normal respiratory effort, clear to auscultation bilaterally, wheezing noted (scattered wheezes), no rales, no retractions, no use of accessory muscles and chest percussion normal Cardiovascular: normal heart rate noted, regular rhythm noted, no gallop, no rub, no murmur, no JVD, no clicks, peripheral pulses 2+ throughout and no additional abnormal heart sounds Gastrointestinal: abdomen normal to inspection, abdomen soft to palpation, nontender to palpation, nontender to percussion, nondistended, normoactive bowel sounds, no hepatosplenomegaly, no masses, no pulsatile mass, no ascites and no hernia Genitourinary: no CVA tenderness Back/Pelvis: spine normal to inspection, no thoracic spine tenderness, no lumbar spine tenderness, thoracic spine ROM normal and lumbar spine ROM normal Extremities: normal to inspection, normal to palpation, no tenderness, full ROM, no joint enlargement and no deformity Neurology: cook mess II-XII intact, no movement abnormality noted, no focal motor deficit noted, no sensory deficits noted, gait normal, speech normal, coordination normal, no pronator drift noted, no fasciculations noted and GCS normal Psychiatry: mental status grossly normal, oriented x3, thought process normal, cooperative, affect normal and psychomotor activity normal Skin: skin color normal Progress Note: Objective Labs Labs: CBC WBC 7.2 K/uL (4.3-9.3) 06/11/24 04:40 RBC 3.7 M/uL (4.00-5.50) L 06/11/24 04:40 Hgb 11.8 gm/dL (12.5-15.8) L 06/11/24 04:40 Hct 34.6 % (35.9-46.7) L 06/11/24 04:40 MCV 93.4 fl (81.0-93.7) 06/11/24 04:40 MCH 31.9 pg (27.6-32.2) 06/11/24 04:40 MCHC 34.2 g/dl (33.1-35.3) 06/11/24 04:40 RDW 13.5 % (11.4-14.2) 06/11/24 04:40 Plt Count 213 K/uL (152-353) 06/11/24 04:40 MPV 9.0 fl (6.9-10.8) 06/11/24 04:40 Gran % 72.3 % (47.8-71.3) H 06/11/24 04:40 Lymph % (Auto) 16.2 % (20.0-43.0) L 06/11/24 04:40 [place] % (Auto) 7.4 % (3.6-9.8) 06/11/24 04:40 Eos % (Auto) 3.4 % (0.4-2.8) H 06/11/24 04:40 Baso % (Auto) 0.7 (0.1-0.85) 06/11/24 04:40 Lymph # (Auto) 1.2 (1.1-3.1) 06/11/24 04:40 [place] # (Auto) 0.5 (1.1-3.1) L 06/11/24 04:40 Eos # (Auto) 0.2 (0.0-0.2) 06/11/24 04:40 Baso # (Auto) 0.1 (0.0-0.1) 06/11/24 04:40 Absolute Gran (auto) 5.2 (2.3-6.0) 06/11/24 04:40 BMP Sodium 137 mmol/L (136-145) 06/11/24 04:40 Potassium 4.1 mmol/L (3.6-5.2) 06/11/24 04:40 Chloride 105.0 mmol/L (98-107) 06/11/24 04:40 Carbon Dioxide 20 mmol/L (21-32) L 06/11/24 04:40 Anion Gap 12.0 mEq/L (4-14) 06/11/24 04:40 BUN 23 mg/dL (7-18) H 06/11/24 04:40 Creatinine 1.3 mg/dL (0.6-1.3) 06/11/24 04:40 Estimated GFR 42.9 (>59.9) 06/11/24 04:40 Glucose 110 mg/dL (70-110) 06/11/24 04:40 Calcium 8.1 mg/dL (8.5-10.1) L 06/11/24 04:40 Phosphorus 3.5 mg/dL (2.5-4.9) 06/09/24 03:40 Magnesium 1.5 mg/dL (1.8-2.4) L 06/11/24 04:40 Total Bilirubin 0.30 mg/dL (0.0-1.0) 06/09/24 03:40 AST 15 U/L (15-37) 06/09/24 03:40 ALT 10 U/L (30-65) L 06/09/24 03:40 Alkaline Phosphatase 91 U/L (50-136) 06/09/24 03:40 Total Protein 6.3 g/dL (6.4-8.2) L 06/09/24 03:40 Albumin 3.1 g/dL (3.4-5.0) L 06/09/24 03:40 Liver Function Total Bilirubin 0.30 mg/dL (0.0-1.0) 06/09/24 03:40 AST 15 U/L (15-37) 06/09/24 03:40 ALT 10 U/L (30-65) L 06/09/24 03:40 Alkaline Phosphatase 91 U/L (50-136) 06/09/24 03:40 Total Protein 6.3 g/dL (6.4-8.2) L 06/09/24 03:40 Albumin 3.1 g/dL (3.4-5.0) L 06/09/24 03:40 Urine Urine Color Yellow (STRAW/YELL.) 06/08/24 11:15 Urine Appearance Clear (CLEAR) 06/08/24 11:15 Ur Specific [place] 1.010 (1.001-1.035) 06/08/24 11:15 Urine Protein Negative (NEGATIVE) 06/08/24 11:15 Urine Glucose (UA) 4+ (NORMAL) 06/08/24 11:15 Urine Ketones Negative (NEGATIVE) 06/08/24 11:15 Urine Occult Blood Negative (NEG - TRACE) 06/08/24 11:15 Urine Nitrite Negative (NEGATIVE) 06/08/24 11:15 Urine Bilirubin Negative (NEGATIVE) 06/08/24 11:15 Urine Urobilinogen Normal (NORMAL) 06/08/24 11:15 Ur Leukocyte Esterase Negative (NEGATIVE) 06/08/24 11:15 Imaging Chest x-ray: Radiologist's impression: XR CHEST 2V Date of Service: 06/11/24 HISTORY: cough and wheezing; COMPARISON: June 08, 2024 FINDINGS: The trachea is midline. The cardiac silhouette is borderline in size. The lungs are clear without focal infiltrate or effusion. The bony thorax is unremarkable. IMPRESSION: No acute cardiopulmonary disease. Progress Note: A&P Assessment and Plan (1) Acute bronchitis: Assessment and Plan: Likely viral. Continue steroids, nebs, inhalers, rest, regular diet Qualifiers: Bronchitis organism: unspecified organism Qualified Code(s): J20.9 - Acute bronchitis, unspecified (2) Acute on chronic kidney failure: Assessment and Plan: resolved Qualifiers: Acute renal failure type: with acute tubular necrosis Chronic kidney disease stage: stage 4 (GFR 15-29) Qualified Code(s): N17.0 - Acute kidney failure with tubular necrosis; N18.4 - Chronic kidney disease, stage 4 (severe) (3) Headache: Qualifiers: Headache chronicity pattern: acute headache Headache type: unspecified Intractability: not intractable Qualified Code(s): R51.9 - Headache, unspecified (4) Nasal congestion: (5) Cough: Qualifiers: Cough type: acute Qualified Code(s): R05.1 - Acute cough Plan Repeat Chest X-Ray today. language barrier despite interpreters having issues understanding patients pain and symptoms of fatigue and cannot breathe Start: Aspirin 81 mg PO DAILY Fluticasone 50 mcg (2) [place] CHARLINE DAILY Azithromycin 500 mg in Sodium Chloride 250 mls @ 250 mls/hr IV DAILY Chlorphenir/Hydrocodone Polistirex 5 ml PO Q12H Methylprednisolone Sodium Succinate [address] of Sinuses Requested Fall Risk Details Santos Fall Scale Risk Level: Moderate Fall Risk Current Medications: Current Medications Acetaminophen (Acetaminophen 500 Mg Tablet) 500 mg PO Q6H PRN PRN Reason: MILD PAIN SCALE 1-4 Last Admin: 06/11/24 06:24 Dose: 500 mg Albuterol Sulfate (Ipratropium/Albuterol Sulfate Inhaler 1 Puff) 2 puff INH QID [facility] Last Admin: 06/11/24 13:48 Dose: 2 puff Aspirin (Aspirin 81 Mg Tablet.Dr) 81 mg PO DAILY [facility] Last Admin: 06/11/24 09:24 Dose: 81 mg Benzonatate (Benzonatate 100 Mg Capsule) 200 mg PO Q8H PRN PRN Reason: cough Last Admin: 06/09/24 11:20 Dose: 200 mg Bisacodyl (Bisacodyl 10 Mg Supp.Rect) 10 mg [place] DAILY PRN PRN Reason: Constipation Chlorphenir/Hydrocodone Polistirex (Hydrocodone/Chlorphen P-Stirex 5 Ml [place].Er.12h) 5 ml PO Q12H [facility] Last Admin: 06/11/24 13:48 Dose: 5 ml Doxycycline Hyclate (Doxycycline Hyclate 100 Mg Tablet) 100 mg PO BID [facility] Last Admin: 06/11/24 09:24 Dose: 100 mg Fluticasone Propionate (Fluticasone 50 Mcg Nasal 1 [place].Susp) 2 spray CHARLINE DA LELIA [facility] Last Admin: 06/11/24 13:47 Dose: 2 spray Sodium Chloride (Sodium Chloride) 1,000 mls @ 125 mls/hr IV CONT [facility] Last Admin: 06/11/24 15:27 Dose: 125 mls/hr Azithromycin 500 mg/ Sodium (Chloride) 250 mls @ 250 mls/hr IV DAILY [facility] Stop: 06/13/24 09:59 Last Infusion: 06/11/24 15:20 Dose: Infused Insulin Human Regular (Insulin Regular, Human 100 Unit/Ml) 0 unit SUBQ ACHS PRN; Protocol PRN Reason: hyperglycemia Last Admin: 06/10/24 20:23 Dose: 10 unit Magnesium Hydroxide (Magnesium, Aluminum Hydroxide 30 Ml Oral.Susp) 30 ml PO DAILY PRN PRN Reason: DYSPEPSIA Last Admin: 06/08/24 21:08 Dose: 30 ml Methylprednisolone Sodium Succinate (Methylprednisolone Sod Succ/Pf 125 Mg/2 Ml Vial) 125 mg IVP Q8H [facility] Last Admin: 06/11/24 13:49 Dose: 125 mg Non-Formulary Medication (Spacer) 1 unit INH QID [facility] Last Admin: 06/11/24 14:23 Dose: Not Given Time Spent With Patient Time: Total time spent is greater than 50% in coordination of care (as documented) at patient's floor/unit and/or counseling patient: Time with patient: 25 - 35 minutes
[2024-06-12 04:50] LABS: Potassium 4.4 mmol/L (3.6-5.2)
[2024-06-12 05:56] LABS: Basophils%(Percent) Auto 0.1 (0.1-0.85); Granulocytes % - Auto 90.9 % (47.8-71.3); Granulocytes#(Absolute)- Auto 6.6 (2.3-6.0); Hematocrit 35.1 % (35.9-46.7); Mean Corpuscular Volume 93.5 fl (81.0-93.7); Monocytes #(Absolute)- Auto 0.1 (1.1-3.1); Monocytes %(Percent)- Auto 0.9 % (3.6-9.8); Platelet Count 220 K/uL (152-353); White Blood Count 7.2 K/uL (4.3-9.3)
[2024-06-12 08:43] VITALS: RESP 19
[2024-06-12 12:43] VITALS: BP 158/71; PULSE 79; TEMP 97.9
--- NOTE | 2024-06-12 15:24 | Discharge Summary ---
DS: Providers Provider Date of admission: 06/08/24 11:43 Primary care physician: Yulisa Villa Admitting clinician: Dot Judd Attending physician on admission: Rajiv Retana Attending physician on discharge: Latricia Lundberg Discharging clinician: Latricia Lunbderg Anticipated date of discharge: 06/12/24 DS: Diagnosis Discharge Diagnosis (1) Acute bronchitis: Qualifiers: Bronchitis organism: unspecified organism Qualified Code(s): J20.9 - Acute bronchitis, unspecified (2) Acute on chronic kidney failure: Qualifiers: Acute renal failure type: with acute tubular necrosis Chronic kidney disease stage: stage 4 (GFR 15-29) Qualified Code(s): N17.0 - Acute kidney failure with tubular necrosis; N18.4 - Chronic kidney disease, stage 4 (severe) (3) Headache: Qualifiers: Headache type: unspecified Headache chronicity pattern: acute headache Intractability: not intractable Qualified Code(s): R51.9 - Headache, unspecified (4) Nasal congestion: (5) Cough: Qualifiers: Cough type: acute Qualified Code(s): R05.1 - Acute cough Plan Discharge home for self care. DS: Summary Hospital Course Hospital Course: Patient admitted from home via ER due to 2 days of worsening cough, malaise, chest congestion, and decreased intake. Found to have acute on chronic renal failure with otherwise benign labs and vitals. Did not rest well overnight due to mid-scapular back pain and cough. Denies fever, chills, N/V/D, rash, dyspnea, or hemoptysis. Admitted to med/surg for observation and treatment. Day two of hospital stay, patient is still experiencing coughing episodes with scattered wheezing. Patient has been ambulating from bed to savi-chair throughout the day. Serum Creatinine normalized today. Provider will continue to monitor and treat at this time. Day three of hospital stay, patient is complaining of a headache this a.m. Additional symptoms include nasal congestion, rhonchi posterior, post nasal drip, and painful chest when coughing. abdominal pain. CT of Sinuses w/wo Contrast has been requested. Patient states they are not feeling well. Language barrier noted, despite interpreters having issues understanding patients pain and symptoms of fatigue and cannot breathe. Day four of hospital stay, patient states she is feeling better. She was sitting up in savi-chair at time of exam; observed to be alert and oriented. Patient is ready to discharge home for self care at this time. Follow up with PCP in 5-7 days of discharge. Status at Discharge Overall status at discharge: patient is back to baseline Time Spent with Patient Time attestation: Total time spent providing and/or coordinating discharge services: Time spent: greater than 30 minutes Exam Exam: Patient sitting up in savi-chair relaxing. Constitutional: normal general appearance, no apparent distress, abnormal body habitus (obese), limitations noted (language barrier) and alert Vital Signs - 24 hr 06/11/24 16:00 06/11/24 20:00 06/12/24 00:00 Temperature 98.5 F 98.4 F 98.3 F Pulse Rate [Left R adial] 76 89 79 Respiratory Rate 19 17 20 Blood Pressure [Ri ght Arm] 147/51 109/44 134/76 Pulse Oximetry 97 95 96 Oxygen Delivery Me thod Room Air Room Air Room Air 06/12/24 04:00 06/12/24 08:00 06/12/24 12:00 Temperature 97.9 F 97.8 F 97.9 F Pulse Rate [Left R adial] 65 71 79 Respiratory Rate 17 19 19 Blood Pressure [Ri ght Arm] 125/58 145/55 158/71 Pulse Oximetry 98 97 96 Oxygen Delivery Me thod Room Air Room Air Room Air HENMT: normocephalic, head/scalp atraumatic, hearing grossly normal bilaterally, external ears normal, TMs normal bilaterally, nasal mucous membranes normal, external nose normal, oral mucous membranes normal and oropharynx normal Eyes: PERRL, EOMs intact bilaterally, conjunctivae normal and no scleral icterus Neck/C-Spine: visual inspection normal and trachea midline Lymph: no lymphadenopathy noted Chest: inspection of chest normal and palpation of chest normal Respiratory: breath sounds equal bilaterally, normal respiratory effort, clear to auscultation bilaterally, no wheezes, no rales, no retractions, no use of accessory muscles and chest percussion normal Cardiovascular: normal heart rate noted, regular rhythm noted, no gallop, no rub, no murmur, no JVD, no clicks, peripheral pulses 2+ throughout and no additional abnormal heart sounds Gastrointestinal: abdomen normal to inspection, abdomen soft to palpation, nontender to palpation, nontender to percussion, nondistended, normoactive bowel sounds, no hepatosplenomegaly, no masses, no pulsatile mass, no ascites and no hernia Genitourinary: no CVA tenderness Back/Pelvis: spine normal to inspection, no thoracic spine tenderness, no lumbar spine tenderness, thoracic spine ROM normal and lumbar spine ROM normal Extremities: normal to inspection, normal to palpation, no tenderness, full ROM, no joint enlargement and no deformity 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, no movement abnormality noted, no focal motor deficit noted, no sensory deficits noted, gait normal, speech normal, coordination normal, no pronator drift noted, no fasciculations noted and GCS normal Psychiatry: mental status grossly normal, oriented x3, thought process normal, cooperative, affect normal and psychomotor activity normal Skin: skin color normal DS: Data Data Completed and Pending Labs on day of discharge: Labs from last 24 hours 06/12/24 04:10 WBC 7.2 RBC 3.8 L Hgb 12.0 L Hct 35.1 L MCV 93.5 MCH 32.1 MCHC 34.3 RDW 13.3 Plt Count 220 MPV 8.9 Gran % 90.9 H Lymph % (Auto) 8.1 L [place] % (Auto) 0.9 L Eos % (Auto) 0.0 L Baso % (Auto) 0.1 Lymph # (Auto) 0.6 L [place] # (Auto) 0.1 L Eos # (Auto) 0.0 Baso # (Auto) 0.0 Absolute Gran (auto) 6.6 H Sodium 130 L Potassium 4.4 Chloride 98.0 Carbon Dioxide 22 Anion Gap 10.0 BUN 21 H Creatinine 1.2 Estimated GFR 47.2 Glucose 386 H Calcium 8.4 L Phosphorus 3.2 Magnesium 2.0 Total Bilirubin 0.22 AST 15 ALT 15 L Alkaline Phosphatase 115 Total Protein 7.0 Albumin 3.0 L Imaging Chest x-ray: Radiologist's impression: XR CHEST 1V Date of Service: 06/08/24 HISTORY: pain; COMPARISON: None. FINDINGS: The trachea is midline. The cardiac silhouette is borderline in size. Mild emphysema is present. The lungs are clear without focal infiltrate or effusion. The bony thorax is unremarkable. IMPRESSION: No acute cardiopulmonary disease. XR CHEST 2V Date of Service: 06/11/24 HISTORY: cough and wheezing; COMPARISON: June 08, 2024 FINDINGS: The trachea is midline. The cardiac silhouette is borderline in size. The lungs are clear without focal infiltrate or effusion. The bony thorax is unremarkable. IMPRESSION: No acute cardiopulmonary disease. Sinuses CT: Radiologist's impression: CT SINUS WO CON Date of Service: 06/11/24 HISTORY: headache and nasal congestionheadache and nasal congestion; COMPARISON: None. TECHNIQUE: Contiguous noncontrast axial CT images paranasal sinuses. Images are reviewed in the axial imaging plane with reformatted sagittal and coronal images.The above CT scan was done with automated exposure control and the mA and kV was adjusted to obtain quality images according to patient size. FINDINGS: Minimal mucosal thickening ethmoid sinuses bilaterally, maxillary sinuses bilaterally, and sphenoid sinuses without air-fluid levels. The mastoid sinuses are well-aerated. The osseous structures appear intact. Nasal septum is midline. Nasal passages are well-aerated. Minimal mucosal thickening along the right ostiomeatal complex. The left ostiomeatal complex is widely patent. Nasal turbinates appear intact. Orbital globes and retro-orbital structures appear intact. IMPRESSION: Minimal sinus disease as described above. Discharge Plan Discharge Disposition: Home, Self-Care Condition: Stable Discharge Medications: New losartan 100 mg tablet 100 mg PO DAILY Qty: 30 0RF metoprolol tartrate 25 mg tablet 25 mg PO BID Qty: 60 0RF famotidine [Pepcid] 40 mg tablet 40 mg PO BID Qty: 60 0RF Continued glipizide 10 mg tablet 10 mg PO BID Rx Instructions: LAST FILLED IN MARCH aspirin 81 mg tablet,delayed release (DR/EC) 81 mg PO DAILY Patient Comments: TAKE 1 BY MOUTH ONCE DAILY Rx Instructions: LAST FILLED IN BUT CAN BE BOUGHT OVER THE COUNTER insulin degludec [Tresiba FlexTouch U-200] 200 unit/mL (3 mL) insulin pen See Rx Instructions SUBCUT .COMPLEX Rx Instructions: UNKNOWN DOSE subcutaneously; THERE ARE NO DIRECTIONS AND IT WAS LAST FILLED IN MARCH pravastatin 40 mg tablet 40 mg PO BEDTIME Patient Comments: TAKE 1 TABLET BY MOUTH ONCE DAILY FOR 30 DAYS Jardiance 10 mg tablet 10 mg PO QAM Discontinued lisinopril-hydrochlorothiazide 10-12.5 mg tablet 1 tab PO DAILY Patient Comments: TAKE 1 TABLET BY MOUTH ONCE DAILY Rx Instructions: LAST FILLED IN LATE MARCH Discharge Orders: Discharge Order (Routine); Ordered 06/12/24 Ordered By: Latricia Lundberg Activity: increase activity as tolerated Activity Detail: exercise daily at least 30 minutes a day even if break up into 10 minute segments Diet: diabetic diet Interventions: Discharge Assessment Last Done: 06/12/24 13:28 MED/SURG & ICU Observation Charge Sheet Last Done: 06/12/24 13:31 Patient Instructions: Dehydration (DC) Activity Restrictions/Additional Instructions: exercise daily at least 30 minutes a day even if break up into 10 minute segments. avoid contacts and allergens and extreme temps and wear mask when with contacts and out follow up PCP in 5-7 days and prn BS and BP journal with pulse also recorded to her PCP follow up Forms: Portal/Health Info Access Inst Follow-Ups: Yulisa Villa [Primary Care Provider] - Discharge Date/Time: 06/12/24 13:31
== END 2024-06-12 13:31 | disposition home or self-care (01) ==
LOC: ED 09:22 → MS 09:22
PROVIDERS: ADMIT Family Medicine; ATTEND Family Medicine